=== PATIENT | female | born 1960 | race Caucasian/White ===

== ENCOUNTER 2017-11-01 22:40 | Emergency (ER) | payer OTHER ==
[~2017-11-01] VITALS: Ht 165.1 cm; Wt 119.9 kg
[~2017-11-01 22:40] MED LIST: ACET-9528 PO; BACL10TA4 PO; CEPH250C16 PO; CITA20TA15 PO; DEXL60EC PO; DULO60EC PO; IBUP-2213 PO; LOSA25TA14 PO; LYR75 PO; METF850T PO; METO50TE2 PO; MONT10TA35 PO; ORE25 PO; PANT40EC PO; SIMV10TA1 PO; TRI48 PO; [UNRECOGNIZED DRUG - CODE] PO
[2017-11-01 22:50] VITALS: BP 191/91
[2017-11-01 23:35] LABS: BASOPHILS # (AUTO) 0.1 K/uL (0.00-0.22); EOSINOPHILS # (AUTO) 0.2 K/uL (0-0.4); EOSINOPHILS % (AUTO) 3.4 % (0.0-4.0); HEMATOCRIT 41.8 % (36-48); HEMOGLOBIN 13.8 g/dL (12.0-16.0); LYMPHOCYTES # (AUTO) 2.9 K/uL (2.5-16.5); LYMPHOCYTES % (AUTO) 45.7 % (20.5-51.1); MEAN CORPUSCULAR HEMOGLOBIN 29 pg (27-31); MEAN CORPUSCULAR HGB CONC 33 g/dL (33-37); MEAN CORPUSCULAR VOLUME 87.4 fL (80-94); MONOCYTES # (AUTO) 0.5 K/uL (0.8-1.0); MONOCYTES % (AUTO) 7.6 % (1.7-9.3); NEUTROPHILS # (AUTO) 2.7 K/uL (1.8-7.7); NEUTROPHILS % (AUTO) 42.3 % (42.2-75.2); PLATELET COUNT (AUTO) 188 K/uL (140-450); RED BLOOD CELL COUNT(AUTO) 4.78 MIL/uL (4.20-5.40); WHITE BLOOD COUNT (AUTO) 6.3 K/uL (4.8-10.8)
[2017-11-02 00:08] LABS: ALBUMIN 4.1 g/dL (3.4-5.0); ANION GAP 14.5 (8-16); CREATININE 1.1 mg/dL (0.6-1.3); POTASSIUM 3.5 mmol/L (3.5-5.1); TOTAL BILIRUBIN 0.3 mg/dL (0.0-1.0)
[2017-11-02 00:19] LABS: APPEARANCE,URINE CLEAR (CLEAR); BILIRUBIN,URINE NEGATIVE (NEGATIVE); BLOOD, URINE NEGATIVE (NEGATIVE); COLOR,URINE YELLOW (YELLOW); LEUKOCYTE ESTERASE ,URINE NEGATIVE (NEGATIVE); NITRITE, URINE NEGATIVE (NEGATIVE); PH,URINE 6.5 (5.0-9.0); UGLUCOSE 3+ (NEGATIVE)
[2017-11-02 00:31] LABS: RBC,URINE 0-5 (RARE) /HPF (0-5); WBC,URINE 0-5 (RARE) /HPF (0-5)
--- NOTE | 2017-11-02 01:28 | NUR ---
pt amb to er bed 1
--- NOTE | 2017-11-02 01:28 | NUR ---
PT C/O EPIGASTRIC PAIN RADIATING TO LEFT LOWER BACK THAT HAS BEEN WORSENING X1 WK. VSS AT THIS TIME. NO FEVER. PT POSITIONED IN BED WITH VSS. ER MD AWARE. CONTINUE TO MONITOR.
--- NOTE | 2017-11-02 03:00 | NUR ---
DR STRATTON AT BEDSIDE EVALUATING PT.
[2017-11-02] MEDS ORDERED: NACL 0.9% 1,000 ML IV SCH (03:24)
[2017-11-02] MEDS ORDERED: metroNIDAZOLE 500 MG/NS PREMIX 100 ML IV STA (03:24)
[2017-11-02] MEDS ORDERED: KETOROLAC 30 MG/ML VIAL IVP ONE (03:25)
[2017-11-02] MEDS ORDERED: MORPHINE SULFATE 2 MG/ML SYR IVP ONE (03:25)
[2017-11-02] MEDS ORDERED: ONDANSETRON 4 MG/2 ML VIAL IVP ONE (03:25)
--- NOTE | 2017-11-02 03:50 | NUR ---
PATIENT TAKEN TO CT VIA WHEELCHAIR WITH TECH.
[2017-11-02] MEDS ORDERED: METOCLOPRAMIDE 10 MG/2 ML INJ VIAL IVP ONE (05:00)
[2017-11-02] MEDS ORDERED: diphenhydrAMINE 50 MG/ML VIAL IVP ONE (05:00)
[2017-11-02] MEDS ORDERED: DICYCLOMINE HCL LIQUID 20 MG, ALUMINUM HYD/MAG/SIMETHICONE 30 ML, LIDOCAINE VISCOUS 2% ... PO ONE ×3 (05:00)
[2017-11-02 05:45] VITALS: BP 191/91
--- NOTE | 2017-11-02 05:45 | NUR ---
Patient discharged with v/s stable. Written and verbal after care instructions given and explained. Patient alert, oriented and verbalized understanding of instructions. Ambulatory with steady gait. All questions addressed prior to discharge. ID band removed. Patient advised to follow up with PMD. Rx of Reglan given. Patient educated on indication of medication including possible reaction and side effects. Opportunity to ask questions provided and answered.
== END 2017-11-02 05:45 | disposition home or self-care (01) ==
LOC: MED 22:40
DX: N20.0 Calculus of kidney (principal); E11.9 Type 2 diabetes mellitus without complications; I10 Essential (primary) hypertension; Z79.899 Other long term (current) drug therapy; Z90.49 Acquired absence of other specified parts of digestive tract
CPT/HCPCS: 36415; 74176; 80053; 81001; 81025; 83690; 85025; 96365; 96375; 99285; J1200; J1885; J2270; J2405; J2765; J3490; J7030

== ENCOUNTER 2021-03-11 13:16 | Emergency (ER) | payer OTHER ==
[~2021-03-11] VITALS: Ht 165.1 cm; Wt 112.0 kg
[~2021-03-11 13:16] MED LIST changes: -DULO60EC PO; +DULO60EC1 PO; +HYDR-4004 PO; -LOSA25TA14 PO; +LOSA25TA32 PO; -ORE25 PO
[2021-03-11 13:38] VITALS: BP 206/113
--- NOTE | 2021-03-11 13:58 | NUR ---
TO ER [facility]
[2021-03-11] MEDS ORDERED: ONDANSETRON 4 MG ODT PO ONE (14:05)
[2021-03-11] MEDS ORDERED: MORPHINE SULFATE 4 MG/ML SYR IM ONE (14:05)
[2021-03-11 15:59] LABS: BASOPHILS # (AUTO) 0.1 K/uL (0.00-0.22); BASOPHILS % (AUTO) 0.7 % (0.0-2.0); EOSINOPHILS # (AUTO) 0.3 K/uL (0-0.4); EOSINOPHILS % (AUTO) 2.8 % (0.0-4.0); HEMATOCRIT 36.6 % (36-48); HEMOGLOBIN 12.4 g/dL (12.0-16.0); LYMPHOCYTES # (AUTO) 2.9 K/uL (2.5-16.5); LYMPHOCYTES % (AUTO) 30.8 % (20.5-51.1); MEAN CORPUSCULAR HEMOGLOBIN 30 pg (27-31); MEAN CORPUSCULAR HGB CONC 34 g/dL (33-37); MONOCYTES # (AUTO) 0.6 K/uL (0.8-1.0); MONOCYTES % (AUTO) 6.4 % (1.7-9.3); NEUTROPHILS # (AUTO) 5.6 K/uL (1.8-7.7); NEUTROPHILS % (AUTO) 59.3 % (42.2-75.2); PLATELET COUNT (AUTO) 228 K/uL (140-450); RED BLOOD CELL COUNT(AUTO) 4.21 MIL/uL (4.20-5.40); RED CELL DISTRIBUTION WIDTH 12.6 % (11.6-13.7); WHITE BLOOD COUNT (AUTO) 9.4 K/uL (4.8-10.8)
[2021-03-11 16:24] LABS: ANION GAP 12.7 (8-16); CARBON DIOXIDE 28.1 mmol/L (21-32); CREATININE 1.1 mg/dL (0.6-1.3); POTASSIUM 3.8 mmol/L (3.5-5.1); TOTAL BILIRUBIN 0.4 mg/dL (0.0-1.0)
[2021-03-11] MEDS ORDERED: NAPR-54 PO (17:25)
[2021-03-11] MEDS ORDERED: ACET-8386 PO (17:25)
[2021-03-11] MEDS ORDERED: NITR100C7 PO (17:25)
[2021-03-11 18:04] VITALS: BP 184/94
--- NOTE | 2021-03-11 18:05 | NUR ---
Patient discharged with v/s stable. Written and verbal after care instructions given FOR FLANK PAIN AND UTI and explained. Patient alert, oriented and verbalized understanding of instructions. Ambulatory with steady gait. All questions addressed prior to discharge. ID band removed. Patient advised to follow up with PMD. Rx of MACROBID, NAPROXEN, AND NORCO given. Patient educated on indication of medication including possible reaction and side effects. Opportunity to ask questions provided and answered.
[2021-03-11 23:09] LABS: APPEARANCE,URINE CLEAR (CLEAR); BILIRUBIN,URINE NEGATIVE (NEGATIVE); BLOOD, URINE NEGATIVE (NEGATIVE); COLOR,URINE YELLOW (YELLOW); LEUKOCYTE ESTERASE ,URINE NEGATIVE (NEGATIVE); NITRITE, URINE NEGATIVE (NEGATIVE); PH,URINE 5.5 (5.0-9.0); UGLUCOSE NEGATIVE (NEGATIVE)
[2021-03-11 23:52] LABS: RBC,URINE 0-5 /HPF (0-5); WBC,URINE 0-5 /HPF (0-5)
[2021-03-11 23:53] LABS: HYALINE CASTS, URINE 0-5 /LPF (None Seen); URINE AMORPHOUS URATE 1+ /HPF (None Seen)
== END 2021-03-11 18:04 | disposition home or self-care (01) ==
LOC: MED 13:16
DX: N39.0 Urinary tract infection, site not specified (principal); E11.9 Type 2 diabetes mellitus without complications; I10 Essential (primary) hypertension; E03.9 Hypothyroidism, unspecified; Z90.49 Acquired absence of other specified parts of digestive tract; Z98.890 Other specified postprocedural states; Z79.84 Long term (current) use of oral hypoglycemic drugs; Z79.899 Other long term (current) drug therapy; Z88.8 Allergy status to other drugs, medicaments and biological substances
CPT/HCPCS: 36415; 74176; 80053; 81001; 83690; 85025; 96372; 99284; J2270; Q0162

== ENCOUNTER 2021-04-24 17:06 | Emergency (ER) | payer OTHER ==
[~2021-04-24] VITALS: Ht 165.1 cm; Wt 111.1 kg
[~2021-04-24 17:06] MED LIST changes: +ACET-8386 PO; +NAPR-54 PO; +NITR100C7 PO
--- NOTE | 2021-04-24 17:06 | NUR ---
MARK ALATORRE VIA GURNEY TO BED 02.
[2021-04-24] MEDS ORDERED: NACL 0.9% 1,000 ML IV ONE (17:15)
[2021-04-24 17:16] VITALS: BP 158/79
--- NOTE | 2021-04-24 17:34 | NUR ---
20 G IV ESTABLISHED TO L AC. BLOOD SAMPLES COLLECTED VIA IV AND HANDED TO PLANT GUARD
[2021-04-24 17:40] LABS: BASOPHILS # (AUTO) 0.1 K/uL (0.00-0.22); BASOPHILS % (AUTO) 0.7 % (0.0-2.0); EOSINOPHILS # (AUTO) 0.2 K/uL (0-0.4); EOSINOPHILS % (AUTO) 2.3 % (0.0-4.0); HEMATOCRIT 40.2 % (36-48); HEMOGLOBIN 13.5 g/dL (12.0-16.0); LYMPHOCYTES # (AUTO) 1.9 K/uL (2.5-16.5); LYMPHOCYTES % (AUTO) 22.5 % (20.5-51.1); MEAN CORPUSCULAR HEMOGLOBIN 29 pg (27-31); MEAN CORPUSCULAR HGB CONC 34 g/dL (33-37); MONOCYTES # (AUTO) 0.5 K/uL (0.8-1.0); MONOCYTES % (AUTO) 6.5 % (1.7-9.3); NEUTROPHILS # (AUTO) 5.7 K/uL (1.8-7.7); PLATELET COUNT (AUTO) 218 K/uL (140-450); RED BLOOD CELL COUNT(AUTO) 4.68 MIL/uL (4.20-5.40); RED CELL DISTRIBUTION WIDTH 13.5 % (11.6-13.7); WHITE BLOOD COUNT (AUTO) 8.3 K/uL (4.8-10.8)
[2021-04-24 17:50] LABS: ACETONE, SERUM NEGATIVE (NEGATIVE)
[2021-04-24 17:58] LABS: PROTHROMBIN TIME 10.4 secs (10.8-13.4)
[2021-04-24 17:59] LABS: ALBUMIN 3.9 g/dL (3.4-5.0); ANION GAP 17.6 (8-16); ASPARTATE AMINOTRANSFERASE 43 U/L (15-37); CARBON DIOXIDE 25.4 mmol/L (21-32); CHLORIDE 99 mmol/L (98-107); CREATININE 1.3 mg/dL (0.6-1.3); GFR ARICAN-AMERICAN 53 mL/min (>90); GLUCOSE 197 mg/dL (74-106); SODIUM SERUM 139 mmol/L (136-145); TOTAL BILIRUBIN 0.5 mg/dL (0.0-1.0); UREA NITROGEN, BLOOD 28 mg/dL (7-18)
--- NOTE | 2021-04-24 18:15 | NUR ---
ASSITED [PT TO REST WITH WC, COLLECTED URINE, WALKED URINE DOWN TO LAB GAVE TO NEGATIVE CUTTER
--- NOTE | 2021-04-24 18:16 | NUR ---
PT TAKEN TO CT VIA WC WITH ROCK STAR
--- NOTE | 2021-04-24 18:29 | NUR ---
PT BACK FROM CT, PT TOLERATED WELL, PT PLACED BACK ON VS MONITOR
[2021-04-24 18:39] LABS: APPEARANCE,URINE CLEAR (CLEAR); BILIRUBIN,URINE NEGATIVE (NEGATIVE); BLOOD, URINE NEGATIVE (NEGATIVE); COLOR,URINE YELLOW (YELLOW); LEUKOCYTE ESTERASE ,URINE NEGATIVE (NEGATIVE); NITRITE, URINE NEGATIVE (NEGATIVE); UGLUCOSE NEGATIVE (NEGATIVE)
[2021-04-24] MEDS ORDERED: fentaNYL citrate 0.05 MG/ML VIAL ONE (18:43)
[2021-04-24] MEDS ORDERED: fentaNYL citrate 0.05 MG/ML VIAL IVP ONE (18:45)
--- NOTE | 2021-04-24 19:16 | NUR ---
Assisted patient to restroom via wheelchair with EMT.
--- NOTE | 2021-04-24 19:23 | NUR ---
PPt report given to ELADIO SALGUERO. Transfer of care at this time.
--- NOTE | 2021-04-24 19:55 | NUR ---
COVID-19 swabs collected and sent to lab.
--- NOTE | 2021-04-24 20:01 | NUR ---
Blood for labwork drawn from right arm per business management consultant. Patient tolerated well.
--- NOTE | 2021-04-24 21:14 | NUR ---
Assisted patient to restroom
--- NOTE | 2021-04-24 21:42 | NUR ---
Provided [facility] as request.
--- NOTE | 2021-04-24 22:37 | NUR ---
Report given to ELADIO De Leon ([facility]).
--- NOTE | 2021-04-24 22:49 | NUR ---
Assisted patient to restroom via wheelchair.
[2021-04-24 23:15] VITALS: BP 177/98
--- NOTE | 2021-04-24 23:15 | NUR ---
Patient to be transferred to [facility]. Is being transferred due to eval. Receiving facility has accepting physician and available space. ER physician has signed transfer form. Patient or responsible republican has agreed to transfer and signed form. Patient belongings inventoried and will be sent with patient. Copy of nursing notes, lab reports, EKG, Physicians Orders and X-rays to be sent with patient. Report called to ELADIO De Leon at receiving facility. ALS ambulance service has been called for transfer.
== END 2021-04-24 23:15 | disposition short-term general hospital (02) ==
LOC: MED 17:06
DX: I63.9 Cerebral infarction, unspecified (principal); Z20.822 Contact with and (suspected) exposure to COVID-19; R47.01 Aphasia; M54.50 Low back pain, unspecified; E11.9 Type 2 diabetes mellitus without complications; I10 Essential (primary) hypertension; E03.9 Hypothyroidism, unspecified; E78.5 Hyperlipidemia, unspecified; Z86.73 Personal history of transient ischemic attack (TIA), and cerebral infarction without residual deficits; Z88.8 Allergy status to other drugs, medicaments and biological substances; Z79.899 Other long term (current) drug therapy; Z79.84 Long term (current) use of oral hypoglycemic drugs; W18.30XA Fall on same level, unspecified, initial encounter; Y93.89 Activity, other specified; Y92.89 Other specified places as the place of occurrence of the external cause; Y99.8 Other external cause status
CPT/HCPCS: 36415; 70450; 71045; 72125; 80053; 81003; 82009; 84484; 85025; 85610; 85730; 86870; 86886; 86900; 86901; 87426; 93005; 96361; 96374; 99285; J3010; J7030; Q0092

== ENCOUNTER 2021-04-29 02:35 | Inpatient (IN) | payer OTHER, SELFPAY ==
[~2021-04-29] VITALS: Ht 165.1 cm; Wt 110.7 kg
[2021-04-29 02:40] VITALS: BP 150/118
--- NOTE | 2021-04-29 02:40 | NUR ---
BIBA TAKEN TO BED #8
--- NOTE | 2021-04-29 02:42 | NUR ---
Patient BIB by ALS/EMS from [facility]. C/O Lower back pain x today. Patient discharged from [facility] to [facility] on 04/28/21 ~ 1300 PM. Per reported, patient refused to stay in [facility] and requested to sign AMA. Staff called 911/ALS and transfer patient to ER to [facility]. A/O,X4, right side weakness (Hx stroke 04/12/21), lower back pain, pain rate 8/10, place patient on boat operator and pulse ox.
--- NOTE | 2021-04-29 02:47 | NUR ---
Dr. Gonzalez at bedside to exam patient.
[2021-04-29] MEDS ORDERED: ENALAPRILAT 2.5 MG/2 ML VIAL IVP ONE (02:50)
[2021-04-29] MEDS ORDERED: MORPHINE SULFATE 4 MG/ML SYR IVP ONE (02:50)
--- NOTE | 2021-04-29 03:01 | NUR ---
COVID-19 swabs collected and sent to lab.
--- NOTE | 2021-04-29 03:10 | NUR ---
CXR at bedside.
[2021-04-29 03:25] LABS: BASOPHILS % (AUTO) 0.6 % (0.0-2.0); EOSINOPHILS # (AUTO) 0.2 K/uL (0-0.4); EOSINOPHILS % (AUTO) 3.3 % (0.0-4.0); HEMATOCRIT 35.6 % (36-48); HEMOGLOBIN 12.1 g/dL (12.0-16.0); LYMPHOCYTES # (AUTO) 1.5 K/uL (2.5-16.5); LYMPHOCYTES % (AUTO) 22.7 % (20.5-51.1); MEAN CORPUSCULAR HEMOGLOBIN 29 pg (27-31); MEAN CORPUSCULAR HGB CONC 34 g/dL (33-37); MEAN CORPUSCULAR VOLUME 86.3 fL (80-94); MONOCYTES # (AUTO) 0.5 K/uL (0.8-1.0); NEUTROPHILS # (AUTO) 4.3 K/uL (1.8-7.7); NEUTROPHILS % (AUTO) 66.4 % (42.2-75.2); PLATELET COUNT (AUTO) 209 K/uL (140-450); RED BLOOD CELL COUNT(AUTO) 4.13 MIL/uL (4.20-5.40); RED CELL DISTRIBUTION WIDTH 13.4 % (11.6-13.7); WHITE BLOOD COUNT (AUTO) 6.5 K/uL (4.8-10.8)
[2021-04-29 03:42] LABS: ALBUMIN 3.7 g/dL (3.4-5.0); CARBON DIOXIDE 28.7 mmol/L (21-32); CREATININE 1.1 mg/dL (0.6-1.3); POTASSIUM 3.7 mmol/L (3.5-5.1); TOTAL BILIRUBIN 0.3 mg/dL (0.0-1.0)
[2021-04-29] MEDS ORDERED: APIX5TAB PO (03:43)
[2021-04-29] MEDS ORDERED: MAGN400T7 PO (03:43)
[2021-04-29] MEDS ORDERED: LIP80 PO (03:43)
[2021-04-29] MEDS ORDERED: BISA-213 RC (03:43)
[2021-04-29] MEDS ORDERED: INSU100S45 SUBQ (03:43)
[2021-04-29] MEDS ORDERED: HYDR2TAB6 PO (03:43)
[2021-04-29] MEDS ORDERED: MAGN400S60 PO (03:43)
[2021-04-29] MEDS ORDERED: AMLO10TA89 PO (03:43)
--- NOTE | 2021-04-29 03:47 | NUR ---
Med rec reviewed.
[2021-04-29] MEDS ORDERED: ACET-1182 PO (03:54)
--- NOTE | 2021-04-29 04:40 | NUR ---
Assisted patient to restroom via wheelchair.
--- NOTE | 2021-04-29 05:01 | NUR ---
Patient returned back to bed.
--- NOTE | 2021-04-29 05:07 | NUR ---
Provided Water as request.
--- NOTE | 2021-04-29 06:05 | NUR ---
Patient appears to be resting comfortably in bed. . Respirations even and unlabored.
[2021-04-29] MEDS ORDERED: MORPHINE SULFATE 4 MG/ML SYR IVP PRN (07:15)
--- NOTE | 2021-04-29 07:17 | NUR ---
Report given Katie, ANNE and endorse care of patient.
--- NOTE | 2021-04-29 07:18 | NUR ---
REPORT RECEIVED FROM ELADIO SALGUERO FOR PATIENT CONTINUITY OF CARE.
--- NOTE | 2021-04-29 08:21 | NUR ---
PATIENT AWAKE, RESTING IN BED. NO SIGNS OF DISTRESS NOTED AT THIS TIME, VSS, SAFETY PRECAUTIONS PUT INTO PLACE. WILL CONTINUE TO MONITOR.
[2021-04-29] MEDS ORDERED: MAGNESIUM HYDROXIDE 2400 MG/30 ML UDC PO PRN (09:00)
[2021-04-29] MEDS ORDERED: ACETAMINOPHEN 325 MG TAB PO PRN (09:00)
[2021-04-29] MEDS ORDERED: INSULIN ASPART 1 UNIT SUBQ SCH (09:00)
[2021-04-29] MEDS ORDERED: MAGNESIUM HYDROXIDE 2400 MG/30 ML UDC PO SCH (09:00)
[2021-04-29] MEDS ORDERED: LORazepam 2 MG/ML VIAL IM/IVP PRN (09:00)
[2021-04-29] MEDS ORDERED: ONDANSETRON 4 MG/2 ML VIAL IM/IVP PRN (09:00)
[2021-04-29] MEDS ORDERED: POTASSIUM CHLORIDE 10 MEQ TABER PO PRN (09:00)
[2021-04-29] MEDS ORDERED: bisacodyL 10 MG SUPP RC SCH (09:00)
[2021-04-29] MEDS ORDERED: ZOLPIDEM 5 MG TAB PO PRN (09:00)
[2021-04-29] MEDS ORDERED: MAG SULF 2000 MG/WATER PREMIX 50 ML IV PRN (09:00)
[2021-04-29] MEDS ORDERED: DOCUSATE SODIUM 100 MG GELCAP PO PRN (09:00)
[2021-04-29] MEDS: APIXABAN 2.5 MG TAB PO SCH ×2 (09:13→21:00)
[2021-04-29] MEDS: MAGNESIUM OXIDE 400 MG TAB PO SCH ×3 (09:14→17:25)
--- NOTE | 2021-04-29 09:14 | NUR ---
LAB AT PATIENT BEDSIDE.
--- NOTE | 2021-04-29 09:20 | NUR ---
PATIENT TAKEN TO CT Addendum: 04/29/21 at 1028 by [email or web address] PATIENT TAKEN TO XRAY
[2021-04-29] MEDS ORDERED: bisacodyL 10 MG SUPP RC PRN (10:10)
--- NOTE | 2021-04-29 10:18 | NUR ---
PATIENT BACK FROM CT Addendum: 04/29/21 at 1028 by [email or web address] PATIENT RETURNED FROM XRAY
[2021-04-29] MEDS: NACL 0.9% 1,000 ML IV SCH (10:21)
--- NOTE | 2021-04-29 10:30 | NUR ---
PATIENT HAS BEEN SCREENED AND CATEGORIZED MODERATE NUTRITION RISK. PATIENT WILL BE SEEN WITHIN 3-5 DAYS OF ADMISSION. 04/29/21-05/03/[address]
[2021-04-29 10:35] LABS: CHOL/HDL RATIO 3.6 (1-4.5); THYROID STIMULATING HORMONE 4.5 uIU/mL (0.34-3.74)
--- NOTE | 2021-04-29 11:00 | NUR ---
DR. MCCRAY EVALUATING PATIENT AT BEDSIDE
--- NOTE | 2021-04-29 11:01 | NUR ---
ULTRASOUND AT PATIENT BEDSIDE.
--- NOTE | 2021-04-29 11:15 | NUR ---
PATIENT VERBALIZED CONSENT TO SPEAK TO PATIENT'S BROTHER DAVE BECERRA FOR UPDATES.
[2021-04-29] MEDS: MORPHINE SULFATE 2 MG/ML SYR IVP PRN ×2 (11:17→22:29)
--- NOTE | 2021-04-29 11:22 | NUR ---
SPOKE TO PATIENT'S BROTHER DAVE BECERRA FOR STATUS UPDATE. BROTHER LEFT PHONE NUMBER AND WOULD LIKE TO BE UPDATED WHEN PATIENT TRANSFERRED TO THE FLOOR. PHONE NUMBER
--- NOTE | 2021-04-29 13:00 | NUR ---
pt finished lunch tray at this time.
--- NOTE | 2021-04-29 13:09 | NUR ---
physical therapy at bedside
--- NOTE | 2021-04-29 13:38 | NUR ---
REPORT CALLED TO ELADIO SOSA IN MED SURG.
--- NOTE | 2021-04-29 13:58 | NUR ---
Patient will be admitted to care of DR MCCRAY. Admited to MED SURG. Will go to room 105B. Belongings list completed. Report to ELADIO SOSA.
--- NOTE | 2021-04-29 14:30 | NUR ---
PT ARRIVED ON UNIT. PT AOx4, VSS, NAD NOTED. PT IN STABLE CONDITION. PT ARRIVED WITH JIMENEZ CATHETER FROM O/P FACILITY.
[2021-04-29 15:11] VITALS: BP 140/65
[2021-04-29 17:15] VITALS: BP 123/60
[2021-04-29] MEDS: INSULIN LISPRO SLIDING SCALE 100 UNITS/ML VIAL SUBQ PRN (17:23)
[2021-04-29] MEDS: BLOOD GLUCOSE MONITORING 1 DEV DEV FS SCH ×2 (17:25→21:00)
--- NOTE | 2021-04-29 18:32 | NUR ---
DR. MCCRAY AWARE OF PT'S JIMENEZ CATH, NEW ORDERS TO REMOVE AND PUT NEW ONE IN. 16 [address] PLACED.
--- NOTE | 2021-04-29 18:55 | NUR ---
PT IN STABLE CONDITION, AOX4, VSS, NAD NOTED. PT HAS JIMENEZ CATH IN PLACE. WILL ENDORSE CARE TO ASSESSMENT COUNSELOR RN.
--- NOTE | 2021-04-29 19:20 | NUR ---
ENDORSED CARE TO GLASS FRAME FITTER RN.
[2021-04-29 20:33] LABS: APPEARANCE,URINE CLEAR (CLEAR); BILIRUBIN,URINE NEGATIVE (NEGATIVE); BLOOD, URINE 2+ (NEGATIVE); COLOR,URINE YELLOW (YELLOW); LEUKOCYTE ESTERASE ,URINE NEGATIVE (NEGATIVE); NITRITE, URINE NEGATIVE (NEGATIVE); UGLUCOSE NEGATIVE (NEGATIVE)
[2021-04-29] MEDS: ATORVASTATIN 80 MG TAB PO SCH (21:00)
[2021-04-29 21:21] LABS: RBC,URINE NONE SEEN /HPF (0-5)
[2021-04-29 21:22] LABS: WBC,URINE NONE SEEN /HPF (0-5)
[2021-04-29 21:25] LABS: BARBITURATE, URINE NEGATIVE ng/ml (NEG <=200); BENZODIAZEPINE, URINE NEGATIVE ng/mL (NEG <=200); CANNABINOID, URINE NEGATIVE ng/mL (NEG <=50); COCAINE, URINE NEGATIVE ng/mL (NEG <=300); OPIATE, URINE POSITIVE ng/mL (NEG <=2000); PHENCYCLIDINE SCREEN,URINE NEGATIVE ng/mL (NEG <=25)
[2021-04-29 23:28] VITALS: BP 145/81
[2021-04-29 23:33] VITALS: BP 142/71
[2021-04-30] MEDS: NACL 0.9% 1,000 ML IV SCH ×2 (01:40→17:25)
[2021-04-30] MEDS: HYDROcodone/APAP 5/325 MG 1 TAB TAB PO PRN ×2 (02:53→21:21)
[2021-04-30 04:03] VITALS: BP 140/78
[2021-04-30] MEDS: MORPHINE SULFATE 2 MG/ML SYR IVP PRN (05:57)
--- NOTE | 2021-04-30 07:30 | NUR ---
RECEIVED REPORT FROM DATA OPERATIONS LEADER NURSE. PT STABLE
[2021-04-30 07:44] LABS: BASOPHILS # (AUTO) 0.1 K/uL (0.00-0.22); BASOPHILS % (AUTO) 1.1 % (0.0-2.0); EOSINOPHILS # (AUTO) 0.3 K/uL (0-0.4); EOSINOPHILS % (AUTO) 4.5 % (0.0-4.0); HEMATOCRIT 35.6 % (36-48); HEMOGLOBIN 11.9 g/dL (12.0-16.0); LYMPHOCYTES # (AUTO) 2.5 K/uL (2.5-16.5); LYMPHOCYTES % (AUTO) 38.2 % (20.5-51.1); MEAN CORPUSCULAR HEMOGLOBIN 29 pg (27-31); MEAN CORPUSCULAR HGB CONC 33 g/dL (33-37); MEAN CORPUSCULAR VOLUME 86.8 fL (80-94); MONOCYTES # (AUTO) 0.4 K/uL (0.8-1.0); MONOCYTES % (AUTO) 6.6 % (1.7-9.3); NEUTROPHILS # (AUTO) 3.3 K/uL (1.8-7.7); NEUTROPHILS % (AUTO) 49.6 % (42.2-75.2); PLATELET COUNT (AUTO) 204 K/uL (140-450); RED CELL DISTRIBUTION WIDTH 13.5 % (11.6-13.7); WHITE BLOOD COUNT (AUTO) 6.6 K/uL (4.8-10.8)
[2021-04-30 07:56] LABS: CARBON DIOXIDE 30.1 mmol/L (21-32); POTASSIUM 4.1 mmol/L (3.5-5.1)
[2021-04-30 08:00] VITALS: BP 162/76
[2021-04-30 08:08] LABS: MAGNESIUM 1.4 mg/dL (1.8-2.4); PHOSPHORUS 3.9 mg/dL (2.5-4.9)
[2021-04-30] MEDS: BLOOD GLUCOSE MONITORING 1 DEV DEV FS SCH ×4 (08:08→20:51)
[2021-04-30] MEDS: amLODIPine 5 MG TAB PO SCH (09:22)
[2021-04-30] MEDS: MAGNESIUM OXIDE 400 MG TAB PO SCH ×3 (09:23→16:36)
[2021-04-30] MEDS: METOPROLOL 25 MG TAB PO SCH ×2 (09:24→21:13)
[2021-04-30] MEDS: INSULIN LISPRO SLIDING SCALE 100 UNITS/ML VIAL SUBQ PRN ×4 (09:28→21:05)
[2021-04-30] MEDS: APIXABAN 2.5 MG TAB PO SCH ×2 (09:28→21:15)
--- NOTE | 2021-04-30 10:16 | NUR ---
PT RESTING IN BED. NO S/S OF DISTRESS. CALL LIGHT IN REACH. ALL SAFETY MEASURES IN PLACE. IV FLUIDS RUNNING PER MD ORDER
--- NOTE | 2021-04-30 13:19 | NUR ---
BG 147. PT COVERED WITH 4 UN. PT TOLERATED WELL. LUNCH AT BEDSIDE. CALL LIGHT IN REACH. ALL SAFETY MEASURES IN PLACE
[2021-04-30 16:00] VITALS: BP 147/73
--- NOTE | 2021-04-30 17:49 | NUR ---
PT FINISHED TELEPSYCH THERAPY WITH DR. Dominguez, NO NEW ORDERS. PT SEES COUNSELOR/THERAPIST OUTPATIENT AND DENIES ANY DEPRESSION, SI, OR ANXIETY. CALL LIGHT IN REACH. ALL SAFETY MEASURES IN PLACE.
--- NOTE | 2021-04-30 19:47 | NUR ---
ENDORSED PT TO TOE STAPLER NURSE. PT STABLE
[2021-04-30 20:00] VITALS: BP 168/83
[2021-04-30] MEDS: ATORVASTATIN 80 MG TAB PO SCH (21:13)
[2021-05-01] MEDS: HYDROcodone/APAP 5/325 MG 1 TAB TAB PO PRN (01:47)
[2021-05-01] MEDS: MORPHINE SULFATE 2 MG/ML SYR IVP PRN ×3 (04:52→20:58)
[2021-05-01 04:56] VITALS: BP 170/77
[2021-05-01] MEDS: BLOOD GLUCOSE MONITORING 1 DEV DEV FS SCH ×4 (06:16→20:46)
[2021-05-01] MEDS: INSULIN LISPRO SLIDING SCALE 100 UNITS/ML VIAL SUBQ PRN ×3 (06:38→18:07)
[2021-05-01 07:26] LABS: BASOPHILS # (AUTO) 0.1 K/uL (0.00-0.22); EOSINOPHILS # (AUTO) 0.3 K/uL (0-0.4); EOSINOPHILS % (AUTO) 4.1 % (0.0-4.0); HEMATOCRIT 36.4 % (36-48); LYMPHOCYTES # (AUTO) 2.8 K/uL (2.5-16.5); LYMPHOCYTES % (AUTO) 40.5 % (20.5-51.1); MEAN CORPUSCULAR HEMOGLOBIN 29 pg (27-31); MEAN CORPUSCULAR HGB CONC 33 g/dL (33-37); MEAN CORPUSCULAR VOLUME 87.7 fL (80-94); MONOCYTES # (AUTO) 0.6 K/uL (0.8-1.0); MONOCYTES % (AUTO) 8.1 % (1.7-9.3); NEUTROPHILS # (AUTO) 3.2 K/uL (1.8-7.7); NEUTROPHILS % (AUTO) 46.3 % (42.2-75.2); PLATELET COUNT (AUTO) 225 K/uL (140-450); RED BLOOD CELL COUNT(AUTO) 4.15 MIL/uL (4.20-5.40); RED CELL DISTRIBUTION WIDTH 14.2 % (11.6-13.7)
--- NOTE | 2021-05-01 07:47 | NUR ---
RECEIVED REPORT FROM SEWING MACHINE OPERATOR SEMIAUTOMATIC NURSE. PT STABLE
[2021-05-01 08:03] LABS: ANION GAP 11.8 (8-16); CARBON DIOXIDE 28.2 mmol/L (21-32); CREATININE 0.9 mg/dL (0.6-1.3)
[2021-05-01 08:35] LABS: MAGNESIUM 1.5 mg/dL (1.8-2.4); PHOSPHORUS 3.7 mg/dL (2.5-4.9)
[2021-05-01] MEDS: METOPROLOL 25 MG TAB PO SCH ×2 (09:24→20:50)
[2021-05-01] MEDS: APIXABAN 2.5 MG TAB PO SCH ×2 (09:24→20:51)
[2021-05-01] MEDS: amLODIPine 5 MG TAB PO SCH (09:24)
[2021-05-01] MEDS: MAGNESIUM OXIDE 400 MG TAB PO SCH ×3 (09:24→17:00)
[2021-05-01] MEDS: NACL 0.9% 1,000 ML IV SCH (11:12)
--- NOTE | 2021-05-01 11:23 | NUR ---
REMOVED PT JIMENEZ PER MD. PT TOLERATED WELL. PT AMBULATED TO RESTROOM. NO S/S OF DISTRESS. CALL LIGHT IN REACH. ALL SAFETY MEASURES IN PLACE
[2021-05-01] MEDS ORDERED: lisinopriL 20 MG TAB PO SCH (14:50)
--- NOTE | 2021-05-01 15:42 | NUR ---
PT HAS BEEN SUCCESSFUL AT AMBULATING TO RESTROOM FOR URINATION AND BM. NO S/S OF DISTRESS. PT AMBULATING WITH OUT ASSISTANCE OR DEVICE, NORMALLY USES WALKER AT HOME. PT STATED THAT PHYSICAL THERAPIST ADVISED PT NOT TO USE HUSBANDS PREVIOUS WALKER IT IS NOT THE RIGHT TYPE FOR HER NEEDS. PT BACK IN BED. CALL LIGHT IN REACH. ALL SAFETY MEASURES IN PLACE
[2021-05-01 16:00] VITALS: BP 147/72
--- NOTE | 2021-05-01 18:21 | NUR ---
BG 227, COVERAGE GIVEN. DINNER AT BEDSIDE. PT DISCONNECTED FROM IV FOR COMFORT WHILE EATING. CALL LIGHT IN REACH. ALL SAFETY MEASURES IN PLACE
--- NOTE | 2021-05-01 19:36 | NUR ---
ENDORSED PT TO DAIRY HUSBANDMAN NURSE
[2021-05-01 20:00] VITALS: BP 170/83
[2021-05-01] MEDS: ATORVASTATIN 80 MG TAB PO SCH (20:49)
[2021-05-02] MEDS: NACL 0.9% 1,000 ML IV SCH (03:40)
[2021-05-02 04:00] VITALS: BP 169/84
[2021-05-02] MEDS: BLOOD GLUCOSE MONITORING 1 DEV DEV FS SCH ×2 (05:59→11:04)
--- NOTE | 2021-05-02 06:03 | NUR ---
pt refusing iv fluids .
[2021-05-02] MEDS: INSULIN LISPRO SLIDING SCALE 100 UNITS/ML VIAL SUBQ PRN ×2 (06:37→11:03)
[2021-05-02 08:00] VITALS: BP 156/87
[2021-05-02] MEDS: APIXABAN 2.5 MG TAB PO SCH (08:31)
[2021-05-02] MEDS: METOPROLOL 25 MG TAB PO SCH (08:32)
[2021-05-02] MEDS: MAGNESIUM OXIDE 400 MG TAB PO SCH (08:32)
[2021-05-02] MEDS: amLODIPine 5 MG TAB PO SCH (08:33)
[2021-05-02 08:34] LABS: BASOPHILS # (AUTO) 0.1 K/uL (0.00-0.22); BASOPHILS % (AUTO) 0.7 % (0.0-2.0); EOSINOPHILS # (AUTO) 0.2 K/uL (0-0.4); EOSINOPHILS % (AUTO) 2.7 % (0.0-4.0); HEMOGLOBIN 12.4 g/dL (12.0-16.0); LYMPHOCYTES # (AUTO) 2.8 K/uL (2.5-16.5); LYMPHOCYTES % (AUTO) 34.7 % (20.5-51.1); MEAN CORPUSCULAR HEMOGLOBIN 29 pg (27-31); MEAN CORPUSCULAR HGB CONC 33 g/dL (33-37); MONOCYTES # (AUTO) 0.6 K/uL (0.8-1.0); MONOCYTES % (AUTO) 7.8 % (1.7-9.3); NEUTROPHILS # (AUTO) 4.3 K/uL (1.8-7.7); NEUTROPHILS % (AUTO) 54.1 % (42.2-75.2); PLATELET COUNT (AUTO) 238 K/uL (140-450); RED BLOOD CELL COUNT(AUTO) 4.26 MIL/uL (4.20-5.40)
[2021-05-02] MEDS ORDERED: lisinopriL 20 MG TAB PO SCH (09:00)
[2021-05-02] MEDS ORDERED: hydroCHLOROthiazide 25 MG TAB PO SCH (09:00)
[2021-05-02 09:19] LABS: MAGNESIUM 1.5 mg/dL (1.8-2.4); PHOSPHORUS 3.2 mg/dL (2.5-4.9)
[2021-05-02] MEDS ORDERED: LISI40TA12 PO (10:27)
[2021-05-02] MEDS ORDERED: METO25TA PO (10:27)
[2021-05-02 10:51] VITALS: BP 150/75
--- NOTE | 2021-05-02 12:02 | NUR ---
Patient discharged home in stable condition with family. All discharge instructions given and understood. IV d/c, Follow up with PCP in one week. patient was taught to monitor her blood pressure and blood sugar.
--- NOTE | 2021-05-02 15:24 | NUR ---
PHYSICAL THERAPY CO-SIGN The Physical Therapy Progress Notes documented by Relief Driller have been reviewed. Reviewed/Co-Signed by: Christianne Barksdale Documentation Done by: MARIETTA HUI PTA Addendum: 05/02/21 at 1524 by Christianne Barksdale PT Amended: Links added.
== END 2021-05-02 12:00 | disposition home or self-care (01) | DRG 305 ==
LOC: MED 02:35 → MMU 07:20 → MTU 12:25
DX: I16.0 Hypertensive urgency (principal); I69.351 Hemiplegia and hemiparesis following cerebral infarction affecting right dominant side; Z68.41 Body mass index [BMI] 40.0-44.9, adult; M54.9 Dorsalgia, unspecified; I12.9 Hypertensive chronic kidney disease with stage 1 through stage 4 chronic kidney disease, or unspecified chronic kidney disease; E11.22 Type 2 diabetes mellitus with diabetic chronic kidney disease; E03.9 Hypothyroidism, unspecified; E86.0 Dehydration; E78.5 Hyperlipidemia, unspecified; I49.3 Ventricular premature depolarization; E66.9 Obesity, unspecified; N18.9 Chronic kidney disease, unspecified; Z20.822 Contact with and (suspected) exposure to COVID-19; Z91.09 Other allergy status, other than to drugs and biological substances; Z79.01 Long term (current) use of anticoagulants; Z79.899 Other long term (current) drug therapy; Z71.3 Dietary counseling and surveillance; Z90.49 Acquired absence of other specified parts of digestive tract; Z98.51 Tubal ligation status; Z98.891 History of uterine scar from previous surgery
CPT/HCPCS: 36415; 71045; 71275; 72050; 72072; 72110; 74018; 80048; 80053; 80305; 81001; 82140; 82150; 82948; 83036; 83690; 83735; 83880; 84100; 84134; 84439; 84443; 84484; 85025; 85610; 85730; 87081; 93005; 96374; 96375; 97110; 97112; 97116; 97163-GP; 97530; 99285; J2270; J2405; J3490; Q0092; Q9967

== ENCOUNTER 2022-04-23 17:32 | Inpatient (IN) | payer OTHER ==
[~2022-04-23] VITALS: Ht 165.1 cm; Wt 106.6 kg
[~2022-04-23 17:32] MED LIST changes: +ACET-1182 PO; -ACET-8386 PO; +ACET-8905 PO; -ACET-9528 PO; +AMLO10TA89 PO; +APIX5TAB PO; -BACL10TA4 PO; +BISA-213 RC; -CEPH250C16 PO; -CITA20TA15 PO; -DEXL60EC PO; -DULO60EC1 PO; -HYDR-4004 PO; +HYDR2TAB6 PO; -IBUP-2213 PO; +INSU100S45 SUBQ; +LIP80 PO; +LISI40TA12 PO; -LOSA25TA32 PO; -LYR75 PO; +MAGN400S60 PO; +MAGN400T7 PO; -METF850T PO; +METO25TA PO; -METO50TE2 PO; -MONT10TA35 PO; -NAPR-54 PO; -NITR100C7 PO; -PANT40EC PO; -SIMV10TA1 PO; -TRI48 PO; -[UNRECOGNIZED DRUG - CODE] PO
[2022-04-23 17:40] VITALS: BP 130/66
--- NOTE | 2022-04-23 17:45 | NUR ---
61F BIBA FROM HOME WITH C/O LOW BLOOD SUGAR AND FALL TODAY. EMS REPORTS PT TOOK DM MEDICATION WITHOUT MEAL TODAY, FELT WEAK AND FELL, PT C/O RIGHT LEG PAIN. INITIAL BS OF 44, GIVEN 180ML OF D10 PRIOR TO ARRIVAL, RECHECK BS WAS 87 BY EMS. PT REPORTS CONSTANT, ACHING LIKE 10/10 PAIN TO RIGHT LEG. PT CHANGED INTO GOWN AND PLACED ON BEDSIDE MONITOR, BED SET TO LOWEST POSITION, SIDE RAILS X2.
--- NOTE | 2022-04-23 17:50 | NUR ---
61YO FEMALE PT BIBA HOME C/O FALL AND LOW BS XTODAY. PER [facility], FAMILY STATES HEARING A "DROP" AND FINDING PT ON BATHROOM FLOOR. PER [facility], BS 44 AT SCENE. PT GIVEN 180ML DURING TX W/ IMPROVEMENT OF BS 87. AT ARRIVAL, PT AAOX4. CLEAR DELAYED SPEECH. STATES FEELING LIGHTHEADED, WEAK AND SOB PRIOR TO FALL -[id number]. PT W/ R SIDED DEFICIT AND CHRONIC BACK PAIN . C/O R SIDED BODY PAIN AND INCREASED LOWER BACK AFTER FALL . NO DEFORMITIES NOTED. IN VISIBLE PAIN. ON SKIMMER SCOOP OPERATOR. BED AT LOWEST POSITION, BED RAILS UPX2. HX:DM2, HTN, STROKE NKA
--- NOTE | 2022-04-23 18:13 | NUR ---
MD GUERRA AT BEDSIDE FOR EVALUATION
--- NOTE | 2022-04-23 18:31 | NUR ---
LAB AT BEDSIDE
[2022-04-23] MEDS ORDERED: MORPHINE SULFATE 4 MG/ML SYR IVP ONE (18:45)
[2022-04-23 19:05] LABS: BASOPHILS % (AUTO) 0.1 % (0.0-2.0); EOSINOPHILS % (AUTO) 0.2 % (0.0-4.0); HEMATOCRIT 30.7 % (36-48); HEMOGLOBIN 10.1 g/dL (12.0-16.0); LYMPHOCYTES # (AUTO) 0.9 K/uL (2.5-16.5); LYMPHOCYTES % (AUTO) 5.5 % (20.5-51.1); MEAN CORPUSCULAR HEMOGLOBIN 28 pg (27-31); MEAN CORPUSCULAR HGB CONC 33 g/dL (33-37); MEAN CORPUSCULAR VOLUME 85.2 fL (80-94); MONOCYTES # (AUTO) 1.5 K/uL (0.8-1.0); MONOCYTES % (AUTO) 8.8 % (1.7-9.3); NEUTROPHILS # (AUTO) 14.3 K/uL (1.8-7.7); NEUTROPHILS % (AUTO) 85.4 % (42.2-75.2); PLATELET COUNT (AUTO) 210 K/uL (140-450); RED CELL DISTRIBUTION WIDTH 14.8 % (11.6-13.7); WHITE BLOOD COUNT (AUTO) 16.7 K/uL (4.8-10.8)
--- NOTE | 2022-04-23 19:10 | NUR ---
XRAY AT BEDSIDE
--- NOTE | 2022-04-23 19:20 | NUR ---
REPORT GIVEN TO FLYNN RODRÍGUEZ. TRANSFER OF CARE AT THIS TIME
[2022-04-23 19:27] LABS: ALBUMIN 3.2 g/dL (3.4-5.0); CARBON DIOXIDE 25.6 mmol/L (21-32); CREATININE 2.6 mg/dL (0.6-1.3); THYROID STIMULATING HORMONE 2.77 uIU/mL (0.34-3.74); TOTAL BILIRUBIN 0.6 mg/dL (0.0-1.0)
[2022-04-23 19:29] LABS: POTASSIUM 2.6 mmol/L (3.5-5.1)
[2022-04-23] MEDS ORDERED: KCL 20 MEQ/WATER INJ PREMIX 100 ML IV ONE (19:35)
[2022-04-23] MEDS ORDERED: POTASSIUM CHLORIDE 10 MEQ TABER PO ONE (19:35)
--- NOTE | 2022-04-23 20:14 | NUR ---
POTASSIUM INFUSION SLOWED DOWN TO 20CC/HR D/T PATIENT REPORTING BURNING WITH THE INFUSION.
--- NOTE | 2022-04-23 20:26 | NUR ---
PT REFUSING K+ IV ; STATES "ITS BURNING I DONT WANT THIS TAKE IT OUT" DR GUERRA AWARE
--- NOTE | 2022-04-23 20:57 | NUR ---
PT STRAIGHT CATHED URINE TO LAB
[2022-04-23 21:13] LABS: APPEARANCE,URINE CLEAR (CLEAR); BILIRUBIN,URINE NEGATIVE (NEGATIVE); BLOOD, URINE MODERATE (NEGATIVE); COLOR,URINE YELLOW (YELLOW); NITRITE, URINE NEGATIVE (NEGATIVE); UGLUCOSE NEGATIVE (NEGATIVE)
[2022-04-23 21:15] LABS: LEUKOCYTE ESTERASE ,URINE 3+ (NEGATIVE)
[2022-04-23 21:43] LABS: RBC,URINE 0-5 /HPF (0-5); TRICHOMONAS,URINE None Seen /HPF (None Seen); YEAST,URINE None Seen /HPF (None Seen)
[2022-04-23] MEDS ORDERED: guaiFENesin DM 200/20 MG-10 ML 10 ML UDC PO PRN (21:50)
[2022-04-23] MEDS ORDERED: POTASSIUM CHLORIDE 10 MEQ TABER PO PRN (21:50)
[2022-04-23] MEDS ORDERED: ACETAMINOPHEN 325 MG TAB PO PRN (21:50)
[2022-04-23] MEDS ORDERED: DOCUSATE SODIUM 100 MG GELCAP PO PRN (21:50)
[2022-04-23] MEDS ORDERED: ZOLPIDEM 5 MG TAB PO PRN (21:50)
[2022-04-23] MEDS ORDERED: ONDANSETRON 4 MG/2 ML VIAL IM/IVP PRN (21:50)
[2022-04-23] MEDS ORDERED: NACL 0.9% 2,000 ML IV SCH (21:55)
[2022-04-23] MEDS ORDERED: cefTRIAXone 1,000 MG VIAL ONE (22:06)
[2022-04-23] MEDS: APIXABAN 2.5 MG TAB PO SCH (22:13)
[2022-04-23] MEDS: NACL 0.9% 1,000 ML IV SCH (22:17)
[2022-04-23 22:29] LABS: PROTHROMBIN TIME 12.3 secs (10.8-13.4)
[2022-04-23 22:41] LABS: AMYLASE 69 U/L (25-115); CHOL/HDL RATIO 7.9 (1-4.5); FREE T4 (FREE THYROXINE) 1.28 ng/dL (0.76-1.46); HDL CHOLESTEROL 16 mg/dL (40-60); LDL (CALC) 45 mg/dL (60-100); LIPASE 449 U/L (73-393); MAGNESIUM 1.2 mg/dL (1.8-2.4); PHOSPHORUS 2.9 mg/dL (2.5-4.9); TRIGLYCERIDES 329 mg/dL (30-150)
--- NOTE | 2022-04-23 22:41 | NUR ---
ADMISSION ORDERS FOR TELE.
[2022-04-23] MEDS ORDERED: FENO145T PO (23:23)
[2022-04-23] MEDS ORDERED: MONT5CTB27 PO (23:23)
[2022-04-23] MEDS ORDERED: HYDR-4004 PO (23:31)
[2022-04-23] MEDS ORDERED: CLON0.2T16 PO (23:31)
[2022-04-23] MEDS ORDERED: PANT40EC PO (23:31)
[2022-04-23] MEDS ORDERED: TIZA4CAP PO (23:32)
--- NOTE | 2022-04-23 23:32 | NUR ---
REPORT GIVEN TO BERENICE HENDRICKS PT TRANSPORTED TO FLOOR
--- NOTE | 2022-04-23 23:33 | NUR ---
Patient will be admitted to care of DR Sujatha MOSES . Admited to TELE. Will go to room. Belongings list completed. Report to BERENICE HENDRICKS.
[2022-04-23 23:35] VITALS: BP 138/83
--- NOTE | 2022-04-23 23:35 | NUR ---
RECEIVED REPORT FROM DAY ER NURSE FLYNN FOR CONTINUITY OF CARE. PATIENT IS A&O X4. PATIENT IS ON ROOM AIR, BREATHING IS NORMAL WITH SYMMETRICAL RISE AND FALL OF CHEST. PATIENT'S IV IS A 20G RFA, RUNNING NS 100. PATIENT IS UNABLE TO AMBULATE DUE TO PAIN IN LEG AND BACK. PATIENT IS LYING SEMI FOWLERS ON BED. BED IS IN LOWEST POSITION, WHEELS LOCKED, CALL LIGHT IN PLACE. WILL CONTINUE TO OBSERVE PATIENT.
--- NOTE | 2022-04-23 23:39 | NUR ---
The patient's care was reviewed and supervised by Dora Rueda RN.
--- NOTE | 2022-04-24 03:30 | NUR ---
PATIENT HAS BEEN REQUESTING DIFFERENT PAIN MEDICATION STATING THAT NORCO AND TYLENOL DOES NOT HELP HER. PATIENT IS REQUESTING DILAUDID AND MORPHINE STATING IT'S THE PAIN REGIMEN SHE TAKES AT HOME. PATIENT ALSO STATES THAT SHE NEEDS TO URINATE, BUT CAN'T WITHOUT A CATHETER PLACED IN HER. I INFORMED PATIENT THAT I NEED A DOCTOR'S ORDER FOR BOTH THE PAIN MEDICATION AND THE CATHETER. THE PATIENT SAYS THE PUREWICK WHICH HAS BEEN PLACED ON HER FROM ER DOESN'T WORK AND WANTS A CATHETER. I MESSAGED PSYCHOLOGY INSTRUCTOR PHYSICIAN DR. MOSES AT 0002 ABOUT PATIENT'S REQUEST. WHILE WAITING FOR MD RESPONSE PATIENT CONTINUED TO REQUEST THESE MEDICATIONS AND CATHETER, REFUSING TO DO ADMISSION UNTIL SHE GETS THEM. MESSAGED DR. MOSES AGAIN INFORMING HIM THAT PATIENT IS STATING SHE'S IN A LOT OF PAIN AND SAYS SHE NEEDS MORPHINE AND DILAUDID, WELL A CATHETER. PATIENT EVENTUALLY AGREED TO USE A BEDPAN TO URINATE; PATIENT WAS ABLE TO USE BEDPAN SUCCESSFULLY. PATIENT WAS CLEANED AND GIVEN NEW GOWN AFTER USING BEDPAN. BANKING SERVICES ADVISOR TYRESE SPOKE WITH PATIENT AND INFORMED HER OF THE IMPORTANCE OF DOING THE ADMISSION. PATIENT AGREED TO DO THE ADMISSION. DR. MOSES MESSAGED BACK AT 0310 STATING, "NO ORDER. WAIT UNTIL I ROUND IN THE MORNING." I INFORMED PATIENT OF 'S RESPONSE. PATIENT STILL DOES NOT WANT NORCO. PATIENT WAS GIVEN PURPLE FOAM BOOTS FOR HER FEET. RIGHT ANKLE APPEARS TO BE SWOLLEN. WILL CONTINUE TO OBSERVE PATIENT.
[2022-04-24 04:00] VITALS: BP 149/67
[2022-04-24 05:27] LABS: BASOPHILS % (AUTO) 0.2 % (0.0-2.0); EOSINOPHILS # (AUTO) 0.1 K/uL (0-0.4); EOSINOPHILS % (AUTO) 0.5 % (0.0-4.0); HEMATOCRIT 31.1 % (36-48); HEMOGLOBIN 10.4 g/dL (12.0-16.0); LYMPHOCYTES # (AUTO) 0.8 K/uL (2.5-16.5); LYMPHOCYTES % (AUTO) 5.5 % (20.5-51.1); MEAN CORPUSCULAR HEMOGLOBIN 28 pg (27-31); MEAN CORPUSCULAR HGB CONC 33 g/dL (33-37); MEAN CORPUSCULAR VOLUME 84.2 fL (80-94); MONOCYTES # (AUTO) 0.9 K/uL (0.8-1.0); MONOCYTES % (AUTO) 6.8 % (1.7-9.3); NEUTROPHILS # (AUTO) 12.1 K/uL (1.8-7.7); PLATELET COUNT (AUTO) 252 K/uL (140-450); RED BLOOD CELL COUNT(AUTO) 3.69 MIL/uL (4.20-5.40); RED CELL DISTRIBUTION WIDTH 15.1 % (11.6-13.7); WHITE BLOOD COUNT (AUTO) 13.9 K/uL (4.8-10.8)
[2022-04-24 06:00] LABS: CARBON DIOXIDE 24.8 mmol/L (21-32); CREATININE 2.1 mg/dL (0.6-1.3)
[2022-04-24 06:05] LABS: POTASSIUM 2.8 mmol/L (3.5-5.1)
--- NOTE | 2022-04-24 07:42 | NUR ---
ENDORSED TO DAY SHIFT NURSE ADZE FOR CONTINUITY OF CARE. PATIENT IS STABLE.
[2022-04-24 08:00] VITALS: BP 176/81
[2022-04-24] MEDS: NACL 0.9% 1,000 ML IV SCH ×2 (09:00→22:29)
[2022-04-24] MEDS ORDERED: PANTOPRAZOLE 40 MG TABEC PO SCH (09:00)
--- NOTE | 2022-04-24 09:02 | NUR ---
PATIENT HAS BEEN SCREENED AND CATEGORIZED MODERATE NUTRITION RISK. PATIENT WILL BE SEEN WITHIN 3-5 DAYS OF ADMISSION. REVIEWED BY JAY YEN RD
--- NOTE | 2022-04-24 09:26 | NUR ---
PT. WITH LOW MAYNOR SCALE AT MODERATE TO HIGH RISK, CONTINUE TO FOLLOW PRESSURE INJURY PREVENTION INTERVENTIONS. -POSITIONING: TURN AND REPOSITION PATIENT Q 2H OR SOONER USE PILLOWS TO KEEP BONY PROMINENCES FROM DIRECT CONTACT WITH SURFACES USE REPOSITIONING WEDGES TO PROVIDE 30-DEGREE ANGLE FOR SIDE LYING POSITIONS OFFLOADING OR FOAM DRESSING TO ALL TUBING TO PREVENT MEDICAL DEVICES RELATED PRESSURE INJURY -RE-EVALUATING AND MANAGING INCONTINENCE MONITOR SKIN CONDITION DURING POSITION CHANGE DO NOT MASSAGE REDNESS, BONY PROMINENCES FREQUENT BEKAH-CARE AND PROVIDE BARRIER CREAMS PRN IF SOILING MOISTURE CONTROL BY OFFER BED CUADRA/URINAL /ABSORBENT PAD TO WICK AND HOLD MOISTURE KEEP SKIN DRY AND PROTECT FROM FRICTION -MANAGE FRICTION/SHEAR/MOBILITY KEEP HOB AT THE LOWEST LEVEL OF ELEVATION NO MORE THAN 30 DEGREE UNLESS OTHERWISE CONTRAINDICATED USE LIFT SHEET OR TRANSFER DEVICE TO MOVE PATIENT AND PREVENT LATERAL SHEER. PROTECT HEELS, ELBOWS BONY PROMINENCES WITH SKIN BERRIES OR FOAM DRESSING IF EXPOSED TO FRICTION OFFLOAD BILATERAL HEELS BY PLACING PILLOWS UNDER CALVES AT ALL TIMES, UNLESS OTHERWISE CONTRAINDICATED -PRESSURE REDISTRIBUTION SURFACE THERAPY WOJCIECH ISOFLEX MATTRESS -NUTRITION: PLEASE FOLLOW RD RECOMMENDATIONS AND OFFER NUTRITION SUPPLEMENTS IF ORDERED. PLEASE CONTACT WOUND CARE NURSE FOR ANY QUESTION AND CHANGE OF WOUND CONDITION.
[2022-04-24] MEDS ORDERED: POTASSIUM CHLORIDE 40 MEQ, LIDOCAINE 1% 25 MG in NACL 0.9% 250 ML IV ONE (09:30)
[2022-04-24] MEDS: amLODIPine 5 MG TAB PO SCH ×2 (09:55→10:02)
[2022-04-24] MEDS: METOPROLOL 25 MG TAB PO SCH ×2 (09:55→21:11)
[2022-04-24] MEDS: APIXABAN 2.5 MG TAB PO SCH ×2 (09:56→21:12)
[2022-04-24 12:00] VITALS: BP 157/70
[2022-04-24] MEDS ORDERED: MAG SULF 2000 MG/WATER PREMIX 50 ML IV SCH (12:00)
[2022-04-24] MEDS ORDERED: POTASSIUM CHLORIDE 10 MEQ TABER PO SCH (12:00)
--- NOTE | 2022-04-24 13:58 | NUR ---
DC PLANNING ATTEMPTED TO MEET PT AT BEDSIDE TO COMPLETE ASSESSMENT, HOWEVER, PT BEING SEEN BY PROVIDER. SW TO FOLLOW
[2022-04-24 16:00] VITALS: BP 156/65
--- NOTE | 2022-04-24 19:25 | NUR ---
RECEIVED PATIENT LYING ON THE BED, FAMILY AT BEDSIDE. PATIENT HAS G20 IV ACCESS SITE ON RIGHT FOREARM, RUNNING NS @100ML/HR. PATIENT IS AWAKE, ALERT AND ORIENTED, CALL LIGHT WITHIN REACH.
[2022-04-24 20:00] VITALS: BP 159/80
[2022-04-24] MEDS: ATORVASTATIN 80 MG TAB PO SCH (21:11)
--- NOTE | 2022-04-24 21:20 | NUR ---
SCHEDULED MEDICATIONS GIVEN ORDERED.
[2022-04-25] VITALS: BP 190/88
[2022-04-25] MEDS: CLONIDINE HYDROCHLORIDE 0.1 MG TAB PO PRN ×2 (00:34→14:10)
--- NOTE | 2022-04-25 00:34 | NUR ---
PRN CLONIDINE GIVEN, BP 190/88. WILL CONTINUE TO MONITOR THE PATIENT.
--- NOTE | 2022-04-25 02:04 | NUR ---
BP 140/60, P 66. WILL CONTINUE TO MONITOR THE PATIENT
[2022-04-25 04:00] VITALS: BP 157/67
[2022-04-25 07:08] LABS: T4 (THYROXINE) 9.1 ug/dL (4.5-12.0)
--- NOTE | 2022-04-25 07:23 | NUR ---
ENDORSED PATIENT TO DAY NURSE FOR CONTINUITY OF CARE. NEEDS MET THROUGHOUT THE SHIFT. PATIENT IN STABLE CONDITION.
[2022-04-25 08:00] VITALS: BP 169/80
[2022-04-25 09:11] LABS: BASOPHILS % (AUTO) 0.1 % (0.0-2.0); EOSINOPHILS # (AUTO) 0.1 K/uL (0-0.4); EOSINOPHILS % (AUTO) 0.4 % (0.0-4.0); HEMATOCRIT 30.1 % (36-48); HEMOGLOBIN 9.9 g/dL (12.0-16.0); LYMPHOCYTES # (AUTO) 1.1 K/uL (2.5-16.5); LYMPHOCYTES % (AUTO) 8.6 % (20.5-51.1); MEAN CORPUSCULAR HEMOGLOBIN 28 pg (27-31); MEAN CORPUSCULAR HGB CONC 33 g/dL (33-37); MEAN CORPUSCULAR VOLUME 84.6 fL (80-94); MONOCYTES # (AUTO) 1.3 K/uL (0.8-1.0); NEUTROPHILS # (AUTO) 10.5 K/uL (1.8-7.7); NEUTROPHILS % (AUTO) 80.9 % (42.2-75.2); PLATELET COUNT (AUTO) 361 K/uL (140-450); RED BLOOD CELL COUNT(AUTO) 3.55 MIL/uL (4.20-5.40); RED CELL DISTRIBUTION WIDTH 15.1 % (11.6-13.7)
[2022-04-25] MEDS: METOPROLOL 25 MG TAB PO SCH ×2 (09:44→20:47)
[2022-04-25] MEDS: APIXABAN 2.5 MG TAB PO SCH ×2 (09:45→20:46)
[2022-04-25 09:58] LABS: ANION GAP 11.8 (8-16); CARBON DIOXIDE 26.6 mmol/L (21-32); CREATININE 1.5 mg/dL (0.6-1.3); POTASSIUM 3.4 mmol/L (3.5-5.1)
[2022-04-25] MEDS: HYDROcodone/APAP 7.5/325 MG 1 TAB PO PRN ×2 (13:32→21:25)
--- NOTE | 2022-04-25 16:24 | NUR ---
DC PLANNING ASSESSMENT COMPLETE SEE ASSESSMENT FOR DETAILS PT REPORTS DC PLAN IS TO RETURN HOME WITH HER SON PROVIDING TRANSPORATION WHEN MEDICALLY STABLE. Addendum: 04/25/22 at 1625 by Derek ALEX Amended: Links added.
[2022-04-25] MEDS: NACL 0.9% 1,000 ML IV SCH (18:37)
--- NOTE | 2022-04-25 19:25 | NUR ---
RECEIVED PATIENT LYING ON THE BED, IS AWAKE, ALERT AND ORIENTED. NO C/O PAIN AT THIS TIME. ALL SAFETY MEASURES IN PLACE.
[2022-04-25 20:00] VITALS: BP 189/74
[2022-04-25] MEDS: ATORVASTATIN 80 MG TAB PO SCH (20:47)
--- NOTE | 2022-04-25 21:05 | NUR ---
SCHEDULED MEDICATIONS GIVEN ORDERED. PATIENT IS AWAKE, ALL SAFETY MEASURES IN PLACE.
--- NOTE | 2022-04-26 02:43 | NUR ---
PATIENT IS ASLEEP, NO SIGNS OF PAIN/DISCOMFORT NOTED, BREATHING EVEN AND NON LABORED ON ROOM AIR. CALL LIGHT WITHIN REACH.
[2022-04-26] MEDS: HYDROcodone/APAP 7.5/325 MG 1 TAB PO PRN ×2 (03:07→09:04)
--- NOTE | 2022-04-26 03:07 | NUR ---
PATIENT C/O 6/10 PAIN ON RIGHT LEG, PRN NORCO GIVEN ORDERED.
[2022-04-26 04:00] VITALS: BP 185/69
[2022-04-26] MEDS: CLONIDINE HYDROCHLORIDE 0.1 MG TAB PO PRN (04:19)
[2022-04-26 05:22] LABS: BASOPHILS % (AUTO) 0.4 % (0.0-2.0); EOSINOPHILS # (AUTO) 0.2 K/uL (0-0.4); EOSINOPHILS % (AUTO) 1.5 % (0.0-4.0); HEMATOCRIT 30.8 % (36-48); HEMOGLOBIN 10.4 g/dL (12.0-16.0); LYMPHOCYTES # (AUTO) 1.3 K/uL (2.5-16.5); LYMPHOCYTES % (AUTO) 12.7 % (20.5-51.1); MEAN CORPUSCULAR HEMOGLOBIN 28 pg (27-31); MEAN CORPUSCULAR HGB CONC 34 g/dL (33-37); MONOCYTES # (AUTO) 1.1 K/uL (0.8-1.0); MONOCYTES % (AUTO) 9.9 % (1.7-9.3); NEUTROPHILS # (AUTO) 8.1 K/uL (1.8-7.7); NEUTROPHILS % (AUTO) 75.5 % (42.2-75.2); PLATELET COUNT (AUTO) 415 K/uL (140-450); RED BLOOD CELL COUNT(AUTO) 3.66 MIL/uL (4.20-5.40); RED CELL DISTRIBUTION WIDTH 15.5 % (11.6-13.7); WHITE BLOOD COUNT (AUTO) 10.7 K/uL (4.8-10.8)
[2022-04-26 06:41] LABS: ANION GAP 12.5 (8-16); CARBON DIOXIDE 26.3 mmol/L (21-32); CREATININE 1.3 mg/dL (0.6-1.3); POTASSIUM 3.8 mmol/L (3.5-5.1)
--- NOTE | 2022-04-26 07:28 | NUR ---
ENDORSED PATIENT TO DAY NURSE FOR CONTINUITY OF CARE. PATIENT IN STABLE CONDITION.
[2022-04-26 08:00] VITALS: BP 128/62
[2022-04-26] MEDS: METOPROLOL 25 MG TAB PO SCH (08:53)
[2022-04-26] MEDS: amLODIPine 5 MG TAB PO SCH (08:56)
[2022-04-26] MEDS: APIXABAN 2.5 MG TAB PO SCH (08:56)
[2022-04-26] MEDS ORDERED: CEPH500C16 PO (10:18)
[2022-04-26 12:39] VITALS: BP 128/62
--- NOTE | 2022-04-26 13:36 | NUR ---
PATIENT'S NEXT KIN.SON IS HERE TO HAND MODEL PATIENT. DISCHARGE INSTRUCTION GIVE WHILE SON IS PRESENT, IV ACCESS & WRIST BAND REMOVED; PATIENT SIGN DISCHARGE CONSENT PRIOR GO HOME.
--- NOTE | 2022-04-26 14:22 | NUR ---
04/26/22 RD INITIAL ASSESSMENT COMPLETED PLEASE REFER TO NUTRITION ASSESSMENT UNDER CARE ACTIVITY FOR ESTIMATED NUTRITIONAL NEEDS. 1. CONTINUE CCHO 60 GM DIET TOLERATED 2. PROVIDED NUTRITION EDUCATION WITH HANDOUTS FOR DM 3. RD TO FOLLOW-UP 7 DAYS, LOW RISK REVIEWED BY JAY YEN RD
== END 2022-04-26 14:10 | disposition home or self-care (01) | DRG 682 ==
LOC: MED 17:32 → MTU 21:27
PROVIDERS: ADMIT Family Medicine; ATTEND Family Medicine
PROC: 2W3QX1Z Immobilization of Right Lower Leg using Splint (ICD-10-PCS; principal; 2022-04-23)
DX: N17.0 Acute kidney failure with tubular necrosis (principal); G93.41 Metabolic encephalopathy; N39.0 Urinary tract infection, site not specified; E44.0 Moderate protein-calorie malnutrition; I69.351 Hemiplegia and hemiparesis following cerebral infarction affecting right dominant side; S92.411A Displaced fracture of proximal phalanx of right great toe, initial encounter for closed fracture; E87.6 Hypokalemia; Z20.822 Contact with and (suspected) exposure to COVID-19; E83.42 Hypomagnesemia; G43.909 Migraine, unspecified, not intractable, without status migrainosus; R74.01 Elevation of levels of liver transaminase levels; E83.51 Hypocalcemia; K59.00 Constipation, unspecified; E11.22 Type 2 diabetes mellitus with diabetic chronic kidney disease; N18.9 Chronic kidney disease, unspecified; G89.29 Other chronic pain; M54.89 Other dorsalgia; E78.1 Pure hyperglyceridemia; I12.9 Hypertensive chronic kidney disease with stage 1 through stage 4 chronic kidney disease, or unspecified chronic kidney disease; E11.649 Type 2 diabetes mellitus with hypoglycemia without coma; W19.XXXA Unspecified fall, initial encounter; Z79.1 Long term (current) use of non-steroidal anti-inflammatories (NSAID); Z79.899 Other long term (current) drug therapy; Z88.8 Allergy status to other drugs, medicaments and biological substances; Y93.89 Activity, other specified; Y92.89 Other specified places as the place of occurrence of the external cause; Y99.8 Other external cause status
CPT/HCPCS: 36415; 71045; 73502; 73562; 73610; 73630; 80048; 80053; 81001; 82150; 83036; 83690; 83735; 83880; 84100; 84436; 84439; 84443; 84479; 84484; 85025; 85610; 85730; 87081; 87086; 93005; 93925; 93970; 96365; 96375; 99291; J0696; J2001; J2270; J3475; J3480; J7030; J7060; Q0092